=== PATIENT | female | born 1955 | race Caucasian/White ===

== ENCOUNTER → 2024-02-17 14:24 | Outpatient (REF) | payer MEDICARE, SELFPAY | LOC: WDC 14:24 | PROVIDERS: ATTENDING PHYSICIAN Nurse Practitioner Family; FAMILY PHYSICIAN Emergency Medicine | DX: Z12.31 Encounter for screening mammogram for malignant neoplasm of breast (principal) | CPT/HCPCS: 77063; 77067 ==

== ENCOUNTER 2024-06-24 14:46 | Inpatient (IN) | payer MEDICARE, SELFPAY ==
[2024-06-23] VITALS (7 sets, daily range): BP systolic 130–159; BP diastolic 59–102; BMI 23.9
[2024-06-23 14:42] LABS: % Basophils 0.4 % (0-2); % Immature Granulocytes 0.3 % (0-0.5); % Lymphocytes 24.5 % (20.5-51.1); % Monocytes 6.3 % (1.7-9.3); % Neutrophils 67.5 % (42.2-75.2); Absolute Eosinophils 0.1 10^3/uL (0-0.7); Absolute Lymphocytes 1.8 10^3/uL (1.2-3.4); Absolute Monocytes 0.5 10^3/uL (0.1-0.6); Absolute Neutrophils 4.9 10^3/uL (1.4-6.5); Hematocrit 34.4 % (37.0-47.0); Hemoglobin 11.8 g/dL (12.0-16.0); Mean Corp Hgb Conc. 34.3 g/dL (33.0-37.0); Mean Corpuscular Hgb 33.3 pg (27.0-31.0); Mean Corpuscular Volume 97.2 fL (81.0-99.0); Mean Platelet Volume 10.9 fL (7.4-10.4); Nucleated Red Blood Cells % 0 %; Platelet Count 196 10^3/uL (130-400); Red Blood Cell Count 3.54 10^6/uL (4.20-5.40); Red Cell Dist. Width 12.9 % (11.5-14.5); White Blood Cell Count 7.2 10^3/uL (4.8-10.8)
--- NOTE | 2024-06-23 14:51 | ED.GENMED ---
History of Present Illness
<Kalpana Banegas PA-C - Last Filed: 06/23/24 18:49>
General
Chief Complaint: Musculo-Skeletal Complaint
Source: patient
Exam Limitations: none
Time Seen by Provider: 06/23/24 14:19
Nursing documentation reviewed up to this point in time: agreed with
History of Present Illness
History of Present Illness:
pt is a 68 y/o F with h/o acoustic neuroma, hypothyroid
here after a fall 4 days ago where pt got up from sitting, she says she had sudden weakness L arm and L leg and couldn't move
she landed on her left shoulder and hip and knee and hurt her foot
she has had pain in the sholder, knee and foot since
her helped her up and she sat for a while before being misty to get up again
she says her wekaness resolved
she had no headache preceding, no siezure, no neck mo, no sudden dizziness
she does have h/o acoustic neuroma hasn't had MRI in a while
no dizziness
Past History
<Kalpana Banegas PA-C - Last Filed: 06/23/24 18:49>
Past History
ED Past Medical History: Hypothyroidism
ED Past Surgical History: None
Social History
Tobacco: Non-smoker
Personal:
Phy Exam
<HERMELINDO Malone Last Filed: 06/23/24 18:49>
Physical Exam
Physical Exam:
GENERAL: Alert , in no apparent distress
head: ncat
no dizziness
EYE: pupils equal and reactive
NECK: Supple, no bruits, nontender
ENT: b/l TM s clear, pharynx erythematous but no tonsillar hypertrophy or exudates
CARDIAC: Regular rate and rhythm, no edema
LUNGS: Clear breath sounds bilaterally, no acute respiratory distress, no wheezes/rales/rhonchi, occ cough
ABDOMEN: Soft, without focal tenderness, no r/g, no cvat, normal bowel sounds
NEUROLOGICAL: Alert and oriented, no focal neuro deficits, cn intacrt
normal strength, normal sensation
SKIN: Warm and dry, skin intact.
MUSCULOSKELETAL: L shoulder mild humeral head tenderness, full rom
left hip nontender
left knee flexion intact, mild discomfort, no effusion
left 5th MTP joint sweling and tenderness;
PSYCH: Normal and appropriate interaction.
Course
<Kalpana Banegas PA-C - Last Filed: 06/23/24 18:49>
Orders/Labs/Results
Orders:
Orders
06/23/24 13:53
Electrocardiogram (*1) Urgent
Reason for Study: Fatigue / Weakness
CT Head W/o Iv Contrast Urgent
Comment:
Reason For Exam: weakness
CR Foot - Left Min 3 Views Urgent
Comment:
Reason For Exam: injury
CR Shoulder, Trauma - Left Urgent
Reason For Exam: injury
06/23/24 13:54
EKG- Treatment ONCE
06/23/24 14:29
Complete Blood Count/With Diff Urgent
Comprehensive Metabolic Panel Urgent
Troponin I Urgent
06/23/24 14:45
CR Knee - Left 4 Or More View* Urgent
Comment:
Reason For Exam: left knee poain fall
06/23/24 Dinner
Regular
At Your Request: Full Participation
06/23/24 18:15
Admit/Transfer Patient As Directed
Co-Sign Provider:
Level of Care: Observation services
Assign to:: Telemetry
Physician / Group: marcus cardenas
Diagnosis: left side weakness conn cva/tia, fall L knee/shoulder contusion, l toe fx
Reason for Telemetry: Arrhythmia
Date to Stop Telemetry: 06/26/24
Time to Stop Telemetry: 11:00
Reason for Hospitalization: left side weakness conn cva/tia, fall L knee/shoulder contusion, l toe fx
Code Status As Directed
Resuscitation Status: Full Code
06/23/24 18:17
PRN Pain Medication Management As Directed
May give lesser potent ordered pain med per pt: Yes
preference::
Protocol:: Medication orders for pain may be administered in a
manner that supports deferring to patient preference
when the pt is:
- Requesting an ordered lesser potent pain medication.
Least to most potent pain medications are defined
as: acetaminophen < NSAID < tramadol < opioids
(morphine, oxycodone, hydromorphone).
- Requesting a lesser dose of the same medication IF
ORDERED.
- Requesting a less intrusive route of administration
if both routes are prescribed by the provider (PO <
IV).
06/23/24 18:59
Acetaminophen [Tylenol/Feverall] 650 mg RECTAL Q4HPRN PRN
Acetaminophen [Tylenol] 650 mg PO Q4HPRN PRN
06/23/24 18:59
Case Management Consult ONCE
Case Management Consult: Discharge Planning
Comment: stroke/tia
DIETARY CONSULT Routine
Reason for Consult: stroke/TIA
Comprehensive Metabolic Panel Routine
Glycohemoglobin (HgbA1c) Routine
MA [place] Routine
Comment:
Reason For Exam: stroke/TIA
OK for patient to be off Cardiac Monitoring for MRI: Yes
Recent pill cam endoscopy?: No
Pacemaker/Defibrillator?: No
MA Neck With Contrast Routine
Comment:
Reason For Exam: stroke/TIA
OK for patient to be off Cardiac Monitoring for MRI: Yes
Recent pill cam endoscopy?: No
Pacemaker/Defibrillator?: No
MR Brain Without Contrast Routine
Comment:
Reason For Exam: stroke/TIA
OK for patient to be off Cardiac Monitoring for MRI: Yes
Recent pill cam endoscopy?: No
Pacemaker/Defibrillator?: No
Activity As Directed
Activity Level: As Tolerated
NIH Stroke Scale As Directed
Directions: Per protocol
Comment: every shift and with any change in condition or mental status
Neurological Checks As Directed
Frequency: q4h
Additional Instructions:: q4h x 24h upon admission to the floor, then qshift & with any change in condition
and mental status
Patient Education As Directed
Type: Stroke education packet
Comment: provide to patient and family
Pneumatic Compression Sleeves As Directed
Type: Knee high
Vital Signs As Directed
Frequency: Per unit guidelines
Ot Eval And Treat Routine
Pt Eval And Treat Routine
Activity Level: As Tolerated
DX Deep Vein Thrombosis Video Routine
06/24/24 06:00
Cardiovascular Evaluation IN AM
Complete Blood Count/No Diff IN AM
TSH Reflex To Free T4 IN AM
06/24/24 08:00
Aspirin Chewable [Low Strength Aspirin] 81 mg PO DAILY
06/26/24 11:00
DC Protocol for Telemetry ONCE
Abnormal Lab Results
06/23/24
14:29
RBC 3.54 L 10^6/uL
(4.20-5.40)
Hgb 11.8 L g/dL
(12.0-16.0)
Hct 34.4 L %
(37.0-47.0)
MCH 33.3 H pg
(27.0-31.0)
MPV 10.9 H fL
(7.4-10.4)
BUN 18 H mg/dl
(7-17)
06/23/24 14:29
06/23/24 14:29
Vital Signs
Initial and Last Documented VS:
Initial Vital Signs
Temp Pulse Resp BP Pulse Ox
98.2 F 96 20 149/90 99
06/23/24 13:47 06/23/24 13:47 06/23/24 13:47 06/23/24 13:47 06/23/24 13:47
Last Documented Vital Signs
Temp Pulse Resp BP Pulse Ox
97.5 F 78 18 146/71 97
06/23/24 19:13 06/23/24 19:13 06/23/24 19:13 06/23/24 19:13 06/23/24 19:13
<Car Almeida, - Last Filed: 06/23/24 20:20>
Orders/Labs/Results
Orders:
Orders
06/23/24 13:53
Electrocardiogram (*1) Urgent
Reason for Study: Fatigue / Weakness
CT Head W/o Iv Contrast Urgent
Comment:
Reason For Exam: weakness
CR Foot - Left Min 3 Views Urgent
Comment:
Reason For Exam: injury
CR Shoulder, Trauma - Left Urgent
Reason For Exam: injury
06/23/24 13:54
EKG- Treatment ONCE
06/23/24 14:29
Complete Blood Count/With Diff Urgent
Comprehensive Metabolic Panel Urgent
Troponin I Urgent
06/23/24 14:45
CR Knee - Left 4 Or More View* Urgent
Comment:
Reason For Exam: left knee poain fall
06/23/24 Dinner
Regular
At Your Request: Full Participation
06/23/24 18:15
Admit/Transfer Patient As Directed
Co-Sign Provider:
Level of Care: Observation services
Assign to:: Telemetry
Physician / Group: marcus cardenas
Diagnosis: left side weakness conn cva/tia, fall L knee/shoulder contusion, l toe fx
Reason for Telemetry: Arrhythmia
Date to Stop Telemetry: 06/26/24
Time to Stop Telemetry: 11:00
Reason for Hospitalization: left side weakness conn cva/tia, fall L knee/shoulder contusion, l toe fx
Code Status As Directed
Resuscitation Status: Full Code
06/23/24 18:17
PRN Pain Medication Management As Directed
May give lesser potent ordered pain med per pt: Yes
preference::
Protocol:: Medication orders for pain may be administered in a
manner that supports deferring to patient preference
when the pt is:
- Requesting an ordered lesser potent pain medication.
Least to most potent pain medications are defined
as: acetaminophen < NSAID < tramadol < opioids
(morphine, oxycodone, hydromorphone).
- Requesting a lesser dose of the same medication IF
ORDERED.
- Requesting a less intrusive route of administration
if both routes are prescribed by the provider (PO <
IV).
06/23/24 18:59
Acetaminophen [Tylenol/Feverall] 650 mg RECTAL Q4HPRN PRN
Acetaminophen [Tylenol] 650 mg PO Q4HPRN PRN
06/23/24 18:59
Case Management Consult ONCE
Case Management Consult: Discharge Planning
Comment: stroke/tia
DIETARY CONSULT Routine
Reason for Consult: stroke/TIA
Comprehensive Metabolic Panel Routine
Glycohemoglobin (HgbA1c) Routine
MA [place] Routine
Comment:
Reason For Exam: stroke/TIA
OK for patient to be off Cardiac Monitoring for MRI: Yes
Recent pill cam endoscopy?: No
Pacemaker/Defibrillator?: No
MA Neck With Contrast Routine
Comment:
Reason For Exam: stroke/TIA
OK for patient to be off Cardiac Monitoring for MRI: Yes
Recent pill cam endoscopy?: No
Pacemaker/Defibrillator?: No
MR Brain Without Contrast Routine
Comment:
Reason For Exam: stroke/TIA
OK for patient to be off Cardiac Monitoring for MRI: Yes
Recent pill cam endoscopy?: No
Pacemaker/Defibrillator?: No
Activity As Directed
Activity Level: As Tolerated
NIH Stroke Scale As Directed
Directions: Per protocol
Comment: every shift and with any change in condition or mental status
Neurological Checks As Directed
Frequency: q4h
Additional Instructions:: q4h x 24h upon admission to the floor, then qshift & with any change in condition
and mental status
Patient Education As Directed
Type: Stroke education packet
Comment: provide to patient and family
Pneumatic Compression Sleeves As Directed
Type: Knee high
Vital Signs As Directed
Frequency: Per unit guidelines
Ot Eval And Treat Routine
Pt Eval And Treat Routine
Activity Level: As Tolerated
DX Deep Vein Thrombosis Video Routine
06/24/24 06:00
Cardiovascular Evaluation IN AM
Complete Blood Count/No Diff IN AM
TSH Reflex To Free T4 IN AM
06/24/24 08:00
Aspirin Chewable [Low Strength Aspirin] 81 mg PO DAILY
06/26/24 11:00
DC Protocol for Telemetry ONCE
Abnormal Lab Results
06/23/24
14:29
RBC 3.54 L 10^6/uL
(4.20-5.40)
Hgb 11.8 L g/dL
(12.0-16.0)
Hct 34.4 L %
(37.0-47.0)
MCH 33.3 H pg
(27.0-31.0)
MPV 10.9 H fL
(7.4-10.4)
BUN 18 H mg/dl
(7-17)
06/23/24 14:29
06/23/24 14:29
Vital Signs
Initial and Last Documented VS:
Initial Vital Signs
Temp Pulse Resp BP Pulse Ox
98.2 F 96 20 149/90 99
06/23/24 13:47 06/23/24 13:47 06/23/24 13:47 06/23/24 13:47 06/23/24 13:47
Last Documented Vital Signs
Temp Pulse Resp BP Pulse Ox
97.5 F 78 18 146/71 97
06/23/24 19:13 06/23/24 19:13 06/23/24 19:13 06/23/24 19:13 06/23/24 19:13
<Kalpana Banegas PA-C - Last Filed: 06/23/24 18:49>
MDM/Problems Addressed
Differential Diagnosis Includes:
tia, stroke, dissection
MDM/Problems Addressed:
68 y/o F
h/o hypothyroid
5 days ago stood up from sitting and fell right to the ground due to L arm an dleg weakness; couldn't move or feel her L side;
she recovered after a few hours
has foot pain on the L and a foot fracture
head ct neg
nih 0 now
needs mri/neuro consult for TIA
<Kalpana Banegas PA-C - Last Filed: 06/23/24 18:49>
*Critical Care Note
Total Time (30-74mins, 75-104mins- exclusive of procedures): Not Applicable
ED Attending Note
<Kalpana Banegas PA-C - Last Filed: 06/23/24 18:49>
-
Portions of this chart may have been created with voice recognition software.� Occasional wrong word or��sound alike� substitutions may have occurred due to the inherent limitations of voice recognition software.
<Car Almeida DO - Last Filed: 06/23/24 20:20>
ED Attending Note
Patient seen and examined by attending physician: Yes
I performed the substantive portion of visit, reviewed & personally made and approve the management plan that is documented in note by myself or TATYANA.: Yes
ED Attending Note:
Concerning left-sided weakness and sensory changes the other day for TIA. Given her age, history and severity of TIA, admit for further workup. Resting comfortably and neuroexam is normal my assessment no focal findings including normal
finger-nose, normal tnsa-pv-tihs, no pronator drift no motor weakness. Cranial nerves intact
Discharge Plan
Departure
Patient Disposition: Admit
Date of Disposition: 06/23/24
Time of Disposition: 16:06
Admit to: Telemetry
Presentation/result/management discussed w/ accepting MD/DO: Hospitalist
Patient with high blood pressure during this ER visit?: No
Condition: Fair
Covid-19: Not Applicable
Discharge Problem:
Brain TIA
Interventions
Interventions:
*Risk Screen - Suicide Last Done: 06/23/24 13:47
*General Assessment Last Done: 06/23/24 13:47
*Neglect/Abuse Screening Last Done: 06/23/24 13:47
ED- Fall Risk Assessment Last Done: 06/23/24 15:33
*ED COVID-19 Vaccine History Last Done: 06/23/24 14:40
*Nursing Disposition Last Done: 06/23/24 18:45
ED-Musculoskeletal Assessment Last Done: 06/23/24 14:40
Discharge Date and Time
Discharge Date/Time: 06/23/24 18:47
[2024-06-23 14:55] LABS: ALT (SGPT) 19 U/L (0-35); AST (SGOT) 29 U/L (14-36); Albumin 4.3 g/dl (3.5-5.0); Alkaline Phosphatase 70 U/L (38-126); Blood Urea Nitrogen 18 mg/dl (7-17); Calcium 9.6 mg/dl (8.4-10.2); Carbon Dioxide 23 mmol/L (22-30); Chloride 105 mmol/L (98-107); Glucose 95 mg/dl (70-99); Sodium 139 mmol/L (135-145); Total Bilirubin 0.6 mg/dl (0.2-1.3); Total Protein 6.7 g/dl (6.3-8.2); eGFR > 60.00
[2024-06-23 15:04] LABS: Troponin I < 0.012 ng/ml
--- NOTE | 2024-06-23 16:48 | HPS.HSE ---
Addendum entered and electronically signed by Christal Napier MD 06/23/24 18:36:
I saw and examined the patient.
The SAF[employer]Y DEPOSIT SUPERVISOR or PA's note was reviewed and I agree with the note.
Comment:
68 F with left sided weakness > 4 days ago that seemed to resolve now
Physical Exam
General: Comfortable and Conversant; No Pain or Fever
HEENT: NormoCephalic, Anicteric, Moist mucous membranes, Atraumatic, PERRLA, Gillis Conjunctivae, No Ptosis and Neck Nontender
Respiratory: Clear; No Wheezes, Rales or Rhonchi
Cardiac: S1/S2 and Regular Rhythm; No Murmur, Rub, Gallop or Peripheral Edema
GI: Soft, Non Tender and Normal Bowel Sounds
Genito-urinary: No CV tenderness
Musculoskeletal: No Clubbing, No Cyanosis, No Edema and Other (Left fifth distal toe tenderness, left fifth mid metatarsal tenderness no abrasion ecchymosis or edema but x-ray showing avulsion fractures, tenderness left anterior shoulder no effusion
full range of motion, tenderness left knee but with full range of motion)
Skin: Warm and Dry; No Rash or Jaundice
Neuro: AO x 3, No Motor Deficits, Nonfocal/grossly intact, Cranial Nerves Intact and No Sensory Deficits; No Slurred Speech, Facial Droop or Tremors
Psych: Calm
#Left-sided weakness concern for CVA/TIA versus acoustic neuroma symptoms ( gets chronic right sided hearing loss, clicking, occasional right blurred vision and some balance issues)
Symptoms 4 days ago
-Consult neurology
-MRI/MRI brain, neck
-Check lipid profile, HgbA1c
-Hold Aleve for 40 mg twice daily as needed
-Aspirin 81mg daily
-Check orthostatic vitals
-PT/OT/case management consult
CT head: No acute intracranial abnormality
#Mechanical fall with left foot, avulsion fracture fifth metatarsal phalangeal joint, lateral fifth middle phalanx
-Ice, Tylenol as needed
-Patient with current cam boot to left foot
-Follow-up outpatient podiatry
#Mechanical fall with right shoulder pain/contusion, left knee contusion
Ice, Tylenol
Right shoulder x-ray DJD glenoid portion of scapula
Left knee x-ray: Hardware intact no fracture or effusion
#Alcohol use
Drinks 2 to 3 glasses wine 3 times a week
-Last drink was 06/20/2024
No current concern for withdrawal
#Hx acoustic neuroma Dx 2019 Dr. Ellison- gets chronic right sided hearing loss, clicking, occasional right blurred vision and some balance issues
#Hypothyroidism
-Check TSH with free T4 reflex
-Continue levothyroxine 50 mcg p.o. daily
#Anxiety
She requested sleep medicine, d/w pt and , will try Klonopin
DVT prophylaxis
SCDs
Total time spent to see the patient, examine the patient on the floor, review data and lab results, and discuss the treatment plan with the patient, ED doctor and nursing staff around 75 minutes
Original Note:
Family Physician
-
Family Physician: Lori Gomes MD
Chief Complaint
-
Fall 4 days ago with left arm left leg weakness, current right shoulder pain, left foot pain
History of Present Illness
68-year-old female complains of a fall 4 days ago from sitting position when she went to stand up she fell onto her left side due to left leg weakness. She reports she was able to brace herself with her right arm only. She complains of left
shoulder pain, left knee pain, left foot pain. She had no prodrome of dizziness headache, blurred vision, chest pain, palpitations, short breath, cough, abdominal pain, nausea, vomit, diarrhea, urinary symptoms, fever, chills. She reports she was
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 She has no appreciated weakness or neurological deficits on my exam. She has history of acoustic neuroma diagnosed in 2020 with occasional chronic right sided
hearing loss, clicking, occasional right blurred vision and some balance issues. in the ER she was placed in a cam boot for a avulsion fracture of her Lateral aspect fifth metatarsophalangeal joint and fifth middle phalanx avulsion fracture
She has past medical history of acoustic neuroma, hypothyroidism, anxiety
Medical History
Past Medical History
Past Medical History: Reports Other
Additional Past Medical History:
acoustic neuroma Dx 2020 by ENT gets chronic right sided hearing loss, clicking, occasional right blurred vision and some balance issues
hypothyroidism
Anxiety
Past Surgical History: Reports Other
Additional Past Surgical History:
section
Knee replacement left
Social History
Tobacco: Non-smoker
Alcohol: Occasional (3 glasses of wine 3 times a week)
Personal:
Living: With Family
Employment: Employed (english as a second language instructor)
Family History
Family History: Other (Mother living, HTN, father age 74 [place] history CVA mid 70s, 1 sister history of mitral prolapse and hypertension other sister healthy 2 brothers healthy)
Allergies / Home Medications
Allergies reflects when Allergies were last updated in [facility].
Home Medications with original date entered in [facility]
Allergy/Medication List:
Allergies
Allergy/AdvReac Type Severity Reaction Status Date / Time
Penicillins Allergy Shortness Verified 06/23/24 13:47
of Breath
Home Medications
cholecalciferol (vitamin D3) 25 mcg (1,000 unit) tablet 1,000 units PO DAILY 03/17/13
multivitamin with folic acid 400 mcg tablet (Tab-A-Jonathan) 1 tab PO DAILY 03/17/13
levothyroxine 50 mcg tablet (Synthroid) 50 mcg PO DAILY 06/23/24
naproxen sodium 220 mg tablet (Aleve) 440 mg PO BIDPRN PRN mild pain 06/23/24
Review of Systems
-
History Source: Patient and Family ( at bedside)
A 12 point ROS was completed and negative except as noted: Yes
Constitutional: Denies Fever, Fatigue or Chills
EENT: Denies Sore Throat or Runny Nose
Respiratory: Denies Cough or Trouble Breathing
Cardiac: Denies Chest Pain, Diaphoresis, Palpitations or Syncope
Abdomen/GI: Denies Abdominal Pain, Nausea, Vomiting, Diarrhea, Constipated, Bloody Stools or Black Stools
: Denies Dysuria, Frequency, Flank Pain, Incontinence, Difficulty Voiding, Urgency or Bleeding
Musculoskeletal: Reports Joint Pain (Left fifth distal toe and mid fifth metatarsal); Denies Edema
Skin: Denies Itching or Rash
Neurological: Denies Dizzy, Headache or Weakness
Endocrine: Reports No Symptoms
Hematologic/Lymphatic: Reports No Symptoms
Psych: Reports Calm
Physical Exam
Vital Signs
Vital Signs
Temp Pulse Resp BP Pulse Ox
98.2 F 83 18 159/88 97
06/23/24 13:47 06/23/24 16:17 06/23/24 16:17 06/23/24 16:17 06/23/24 16:17
Physical Exam
General: Comfortable and Conversant; No Pain or Fever
HEENT: NormoCephalic, Anicteric, Moist mucous membranes, Atraumatic, PERRLA, Gillis Conjunctivae, No Ptosis and Neck Nontender
Respiratory: Clear; No Wheezes, Rales or Rhonchi
Cardiac: S1/S2 and Regular Rhythm; No Murmur, Rub, Gallop or Peripheral Edema
Breast: Deferred by me
GI: Soft, Non Tender and Normal Bowel Sounds
Rectal: Deferred by Provider
Genito-urinary: Deferred by me
Musculoskeletal: No Clubbing, No Cyanosis, No Edema and Other (Left fifth distal toe tenderness, left fifth mid metatarsal tenderness no abrasion ecchymosis or edema but x-ray showing avulsion fractures, tenderness left anterior shoulder no effusion
full range of motion, tenderness left knee but with full range of motion)
Skin: Warm and Dry; No Rash or Jaundice
Neuro: AO x 3, No Motor Deficits, Nonfocal/grossly intact, Cranial Nerves Intact and No Sensory Deficits; No Slurred Speech, Facial Droop or Tremors
Psych: Calm
Laboratory Results
-
06/23/24 14:29
06/23/24 14:29
Laboratory Results
Total Bilirubin 0.6 mg/dl (0.2-1.3) 06/23/24 14:29
AST 29 U/L (14-36) 06/23/24 14:
ALT 19 U/L (0-35) 06/23/24 14:
Alkaline Phosphatase 70 U/L (38-126) 06/23/24 14:
Troponin I < 0.012 ng/ml 06/23/24 14:29
Impression/Plan
-
Impression/plan:
Observation telemetry
#Left-sided weakness concern for CVA/TIA versus acoustic neuroma symptoms ( gets chronic right sided hearing loss, clicking, occasional right blurred vision and some balance issues)
Symptoms 4 days ago
-Consult neurology
-MRI/MRI brain, neck
-Check lipid profile, HgbA1c
-Hold Aleve for 40 mg twice daily as needed
-Aspirin 81mg daily
-Check orthostatic vitals
-PT/OT/case management consult
CT head: No acute intracranial abnormality
#Mechanical fall with left foot, avulsion fracture fifth metatarsal phalangeal joint, lateral fifth middle phalanx
-Ice, Tylenol as needed
-Patient with current cam boot to left foot
-Follow-up outpatient Ortho
#Mechanical fall with right shoulder pain/contusion, left knee contusion
Ice, Tylenol
Right shoulder x-ray DJD glenoid portion of scapula
Left knee x-ray: Hardware intact no fracture or effusion
#Alcohol use
Drinks 2 to 3 glasses wine 3 times a week
-Last drink was 06/20/2024
No current concern for withdrawal
#Hx acoustic neuroma Dx 2019 Dr. Ellison- gets chronic right sided hearing loss, clicking, occasional right blurred vision and some balance issues
#Hypothyroidism
-Check TSH with free T4 reflex
-Continue levothyroxine 50 mcg p.o. daily
#Anxiety
-No reported meds
DVT prophylaxis
SCDs
Full code
--- NOTE | 2024-06-23 18:53 | PTCARENOTE ---
Pt received from ED to [phone]. Pt oriented to room and call chen.
[2024-06-23] MEDS: KLONOPIN 0.5 MG PO (22:05)
[2024-06-24] VITALS (7 sets, daily range): BP systolic 108–139; BP diastolic 58–92; PULSE 76; O2SAT 96–97
[2024-06-24] MEDS: NSS (PRESERVATIVE FREE) 0.5 ML IV (07:48)
[2024-06-24] MEDS: ATIVAN 1 MG IV (07:48)
[2024-06-24] MEDS: LOW STRENGTH ASPIRIN 81 MG PO (07:48)
[2024-06-24 07:54] LABS: Hematocrit 35.4 % (37.0-47.0); Hemoglobin 12.1 g/dL (12.0-16.0); Mean Corp Hgb Conc. 34.2 g/dL (33.0-37.0); Mean Corpuscular Hgb 33.9 pg (27.0-31.0); Mean Corpuscular Volume 99.2 fL (81.0-99.0); Mean Platelet Volume 11.5 fL (7.4-10.4); Platelet Count 184 10^3/uL (130-400); Red Blood Cell Count 3.57 10^6/uL (4.20-5.40); Red Cell Dist. Width 12.7 % (11.5-14.5); White Blood Cell Count 5.1 10^3/uL (4.8-10.8)
[2024-06-24 07:57] LABS: HDL Cholesterol 82 mg/dl; LDL Cholesterol, Calculated 115 mg/dl; Total Cholesterol 208 mg/dl (50-199); Triglyceride 59 mg/dl (10-149); Very Low Density Lipoprotein 11 mg/dl (0-30)
[2024-06-24 08:21] LABS: TSH Reflex To Free T4 4.02 uIU/ml (0.47-4.68)
[2024-06-24 09:30] LABS: Glycohemoglobin (HgbA1c) 5.2 % (4.0-5.6)
--- NOTE | 2024-06-24 09:51 | CON.NEURO4 ---
Documented by User: Indu Foley NP 06/24/24 14:20
Consultation - Neurology 4
-
CONSULTING PHYSICIAN: Heber Darden MD
REFERRING PHYSICIAN: Hospitalists/MURPHY Singletary
DICTATED BY: MURPHY Moyer
DATE/TIME OF REQUEST: 06/23/24
DATE/TIME OF CONSULTATION: 06/24/24
Reason for Consultation: Left sided numbness/weakness
History of Present Illness:
This is a 68-year-old right-handed female who has presented to the hospital on 06/23/24 with report of left-sided weakness and numbness. Patient reports being away last weekend to visit friends. Five days ago on 06/19/24, she reports standing up from
drinking coffee on the porch and suddenly developing numbness in her left face, arm, and leg. She tried to walk and her LLE seemed to slide diagonally. She was unable to control her LLE and she fell to the ground, injuring her left foot. She was
unable to get up off the ground independently but her assisted her to stand and was able to get her to the couch to lie down. She reports lying down for several hours and notes that her symptoms gradually resolved. She was able to walk again
but her balance was slightly off. She notes feeling foggy/not quite as mentally sharp following this event. Her balance has also remained off for the next several days but she attributed this to her left foot pain and her acoustic neuroma. She
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 CT head was obtained on arrival in the ER and is negative for any acute abnormalities. NIHSS was 0. She was not a candidate for TNK/IAT due to being outside
of the time window and NIHSS 0. She reports having a mild headache this morning that has now resolved. She denies any dizziness, vision changes, speech/swallow difficulty, numbness, nausea, chest pain, palpitations, and shortness of breath. She
notes that her left foot feels slightly weak but she attributes this to pain. She denies any history of TIA, stroke, or events like this in the past. She was not taking any blood-thinning medications. She has a history of acoustic neuroma diagnosed
in 2020 after evaluation by ENT for chronic right-sided hearing loss, right ear clicking sound, occasional R eye blurry vision, and intermittent balance issues.
Past Medical History: Acoustic neuroma, hypothyroidism, anxiety
Surgical History: , L TKR
Family History: Father- CVA in his 70's, Guillain [place].
Social History: Former distant tobacco. Occasional alcohol. No illicit drug use.
Allergies: Penicillins.
Home Medications: See below.
Review of Symptoms:
Patient denies any fever, headache, chest pain, shortness of breath, GI or symptoms.
�Per the HPI.�All systems are reviewed negative except above.
Physical Exam:
The patient is afebrile, abdomen is nondistended, breathing is unlabored, skin is warm and dry, no edema.
NIH Stroke Scale:
I performed the NIH stroke scale on the patient on 06/24/24 at 1000. The patient scored 1 points on the NIH stroke scale assessment, which were assigned as follows: See below.
Neurologic Examination:
The patient is awake, alert and oriented x 3. She is able to follow commands and answer questions appropriately. There is no aphasia or dysarthria. On cranial nerve assessment, pupils are 3 mm bilateral, round and reactive to light and
accommodation. Visual massey are full. Extraocular movements are intact. Facial sensations are intact and bilaterally symmetrical, there is no facial asymmetry. Hearing is intact bilaterally to normal conversation volume. Tongue palate and uvula are
midline. Sternocleidomastoid strengths are full bilaterally. Motor strengths are 5/5 bilateral upper, 5/5 right lower, and 5-/5 left lower extremities on medical research Jena scale. There is very slight drift in the LLE. No involuntary movement
noted. Babinski is absent bilaterally. Sensations of touch, temperature and vibration are intact and bilaterally symmetrical. There was no extinction noted on double simultaneous stimulation. Coordination is intact by finger to nose bilaterally.
Lab Results: See below.
Neuro Imaging:
1. CT Head 06/23/24: No acute intracranial abnormality.
2. MRI Brain 06/24/24: Suspected small nonhemorrhagic acute/subacute right frontal lobe infarct.
3. MRA Head/Neck 06/24/24: No focal hemodynamically significant stenosis, aneurysm or occlusion.
Differentials for the patient's presentation include:
1. Acute right frontal lobe small ischemic stroke producing left-sided symptoms; unclear etiology, likely small vessel disease but low risk factors for stroke.
Patient has the following risk factors for their symptoms: HLD, age, family history
IV Tenecteplase/IAT candidacy: She was not a candidate for TNK/IAT due to being outside of the time window and NIHSS 0.
Recommendations:
-Continue DAPT with aspirin 81mg and Plavix 75mg daily for 21 days. After 21 days, discontinue Plavix and continue aspirin 81mg daily only, indefinitely.
-Goal normotension.
-TTE pending.
-Patient was due for acoustic neuroma surveillance imaging as an outpatient. Radiology is able to visual this based on imaging completed today and will addend the report to include measurements.
-LDL goal <70. LDL is 115. Recommend initiating atorvastatin 40mg daily. Patient refuses any statin therapy and ezetimibe. Discussed significance of high dose statin therapy in stroke prevention, patient still refuses.
-Goal normoglycemia, hbA1c is 5.2.
-NIHSS and neurological checks per unit guidelines.
-Provide patient with a stroke education packet.
-PT/OT evaluations.
-DVT prophylaxis.
-Patient should follow-up with Neurology as an outpatient in about 4 weeks, may see the [employer] [employer] [employer] or one of the physicians.
Discussed patient care with: Dr. Darden, the patient
Vital Signs and Labs
-
Vital Signs and Labs:
Vital Signs
Temp Pulse Resp BP Pulse Ox
97.7 F 77 18 139/64 99
06/24/24 11:27 06/24/24 11:27 06/24/24 11:27 06/24/24 11:27 06/24/24 11:27
Lab Results
06/24/24 06:31
06/23/24 18:59
Sodium Cancelled 06/23/24 18:59
Potassium Cancelled 06/23/24 18:59
BUN Cancelled 06/23/24 18:59
Glucose Cancelled 06/23/24 18:59
Calcium Cancelled 06/23/24 18:59
LDL Cholesterol, Calc 115 mg/dl 06/24/24 06:31
Medications
-
Active Medications
Generic Name Dose Route Start Last Admin
Trade Name Freq PRN Reason Stop Dose Admin
Acetaminophen 650 mg 06/23/24 18:59
Acetaminophen 650 Mg Rectal Suppository RECTAL 07/21/24 18:58
Q4HPRN PRN
FERRARO, mild pain, or temp >100.4F
Acetaminophen 650 mg 06/23/24 18:59
Acetaminophen 325 Mg Tablet PO 07/21/24 18:58
Q4HPRN PRN
FERRARO, mild pain, or temp >100.4F
Aspirin 81 mg 06/24/24 08:00 06/24/24 07:48
Aspirin 81 Mg Chewable Tablet PO 07/22/24 07:59 81 mg
DAILY JARON Administration
Clonazepam 0.5 mg 06/23/24 22:00 06/23/24 22:05
Clonazepam 0.5 Mg Tablet PO 07/21/24 21:59 0.5 mg
HS JARON Administration
Clopidogrel Bisulfate 75 mg 06/24/24 10:00 06/24/24 12:25
Clopidogrel 75 Mg Tablet PO 07/14/24 08:01 75 mg
DAILY JARON Administration
Lorazepam 1 mg 06/23/24 18:59 06/24/24 07:48
Lorazepam 2 Mg/Ml Vial IV 06/24/24 18:58 1 mg
ONCE PRN PRN Administration
MRI testing
Sodium Chloride 0 flush 06/23/24 20:00
Sodium Chloride 0.9% (Flush) Syringe IV 07/21/24 19:59
PER PROTOCOL JARON
Sodium Chloride 0.5 ml 06/23/24 19:51 06/24/24 07:48
Nss (Pf) 10 Ml Vial For Ativan 1 Mg Dose IV 06/24/24 19:50 0.5 ml
ONCE PRN PRN Administration
IV LORAZEPAM DILUTION
Home Medications
�Medication �Instructions �Recorded
cholecalciferol (vitamin D3) 25 1,000 units PO DAILY 03/17/13
mcg (1,000 unit) tablet
multivitamin with folic acid 400 1 tab PO DAILY 03/17/13
mcg tablet (Tab-A-Jonathan)
levothyroxine 50 mcg tablet 50 mcg PO DAILY 06/23/24
(Synthroid)
naproxen sodium 220 mg tablet 440 mg PO BIDPRN PRN mild pain 06/23/24
(Aleve)
NIH Stroke Score
Subsequent NIH Scale
Date of Subsequent NIH Scale: 06/24/24
Time of Subsequent NIH Scale: 10:00
NIH Stroke Score
Level of Consciousness: 0 - Alert
LOC Questions: 0-Answers both correctly
LOC Commands: 0-Performs both correctly
Best Horizontal Gaze: 0-Normal
Visual Massey: 0=Normal, no visual loss
Facial Palsy: 0=Normal, symmetrical
Motor - Right Arm: 0=No drift 10 seconds
Motor - Left Arm: 0=No drift 10 seconds
Motor - Right Le-No drift 5 seconds
Motor - Left Le-Drift < 5 seconds
Limb Ataxia: 0-Absent
Sensation: 0-Normal
Best Language: 0-No aphasia
Dysarthria: 0-Normal
Extinction and Inattention: 0-No abnormality
Total Score:: 1
Modified Eighty [place] (mRS) Score
Modified Mook Scale (mRS): No significant disability. Able to carry out usual activities.
Score: 1
Alteplase Contraindication
Inclusion and Exclusion criteria reviewed: Yes
Reasons for NON-Tx with Thrombolytics ABSOLUTE Exclusions: Greater than 4.5 hrs from onset of sxs
IAT Contraindications: NIHSS < 6

Documented by User: Heber Darden MD 06/24/24 14:49
Consultation - Neurology 4
-
CONSULTING PHYSICIAN: Heber Darden MD
REFERRING PHYSICIAN: Hospitalists/MURPHY Singletary
DICTATED BY: MURPHY Moyer
DATE/TIME OF REQUEST: 06/23/24
DATE/TIME OF CONSULTATION: 06/24/24
Reason for Consultation: Left sided numbness/weakness
History of Present Illness:
This is a 68-year-old right-handed female who has presented to the hospital on 06/23/24 with report of left-sided weakness and numbness. Patient reports being away last weekend to visit friends. Five days ago on 06/19/24, she reports standing up from
drinking coffee on the porch and suddenly developing numbness in her left face, arm, and leg. She tried to walk and her LLE seemed to slide diagonally. She was unable to control her LLE and she fell to the ground, injuring her left foot. She was
unable to get up off the ground independently but her assisted her to stand and was able to get her to the couch to lie down. She reports lying down for several hours and notes that her symptoms gradually resolved. She was able to walk again
but her balance was slightly off. She notes feeling foggy/not quite as mentally sharp following this event. Her balance has also remained off for the next several days but she attributed this to her left foot pain and her acoustic neuroma. She
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 CT head was obtained on arrival in the ER and is negative for any acute abnormalities. NIHSS was 0. She was not a candidate for TNK/IAT due to being outside
of the time window and NIHSS 0. She reports having a mild headache this morning that has now resolved. She denies any dizziness, vision changes, speech/swallow difficulty, numbness, nausea, chest pain, palpitations, and shortness of breath. She
notes that her left foot feels slightly weak but she attributes this to pain. She denies any history of TIA, stroke, or events like this in the past. She was not taking any blood-thinning medications. She has a history of acoustic neuroma diagnosed
in 2019 after evaluation by ENT for chronic right-sided hearing loss, right ear clicking sound, occasional R eye blurry vision, and intermittent balance issues.
Past Medical History: Acoustic neuroma, hypothyroidism, anxiety
Surgical History: , L TKR
Family History: Father- CVA in his 70's, Guillain [place].
Social History: Former distant tobacco. Occasional alcohol. No illicit drug use.
Allergies: Penicillins.
Home Medications: See below.
Review of Symptoms:
Patient denies any fever, headache, chest pain, shortness of breath, GI or symptoms.
�Per the HPI.�All systems are reviewed negative except above.
Physical Exam:
The patient is afebrile, abdomen is nondistended, breathing is unlabored, skin is warm and dry, no edema.
NIH Stroke Scale:
I performed the NIH stroke scale on the patient on 06/24/24 at 1000. The patient scored 1 points on the NIH stroke scale assessment, which were assigned as follows: See below.
Neurologic Examination:
The patient is awake, alert and oriented x 3. She is able to follow commands and answer questions appropriately. There is no aphasia or dysarthria. On cranial nerve assessment, pupils are 3 mm bilateral, round and reactive to light and
accommodation. Visual massey are full. Extraocular movements are intact. Facial sensations are intact and bilaterally symmetrical, there is no facial asymmetry. Hearing is intact bilaterally to normal conversation volume. Tongue palate and uvula are
midline. Sternocleidomastoid strengths are full bilaterally. Motor strengths are 5/5 bilateral upper, 5/5 right lower, and 5-/5 left lower extremities on medical research Jena scale. There is very slight drift in the LLE. No involuntary movement
noted. Babinski is absent bilaterally. Sensations of touch, temperature and vibration are intact and bilaterally symmetrical. There was no extinction noted on double simultaneous stimulation. Coordination is intact by finger to nose bilaterally.
Lab Results: See below.
Neuro Imaging:
1. CT Head 06/23/24: No acute intracranial abnormality.
2. MRI Brain 06/24/24: Suspected small nonhemorrhagic acute/subacute right frontal lobe infarct.
3. MRA Head/Neck 06/24/24: No focal hemodynamically significant stenosis, aneurysm or occlusion.
Differentials for the patient's presentation include:
1. Acute right frontal lobe small ischemic stroke producing left-sided symptoms; unclear etiology, likely small vessel disease but low risk factors for stroke.
Patient has the following risk factors for their symptoms: HLD, age, family history
IV Tenecteplase/IAT candidacy: She was not a candidate for TNK/IAT due to being outside of the time window and NIHSS 0.
Recommendations:
-Continue DAPT with aspirin 81mg and Plavix 75mg daily for 21 days. After 21 days, discontinue Plavix and continue aspirin 81mg daily only, indefinitely.
-Goal normotension.
-TTE pending.
-Patient was due for acoustic neuroma surveillance imaging as an outpatient. Radiology is able to visual this based on imaging completed today and will addend the report to include measurements.
-LDL goal <70. LDL is 115. Recommend initiating atorvastatin 40mg daily. Patient refuses any statin therapy and ezetimibe. Discussed significance of high dose statin therapy in stroke prevention, patient still refuses.
-Goal normoglycemia, hbA1c is 5.2.
-NIHSS and neurological checks per unit guidelines.
-Provide patient with a stroke education packet.
-PT/OT evaluations.
-DVT prophylaxis.
-Patient should follow-up with Neurology as an outpatient in about 4 weeks, may see the [employer] [employer] [employer] or one of the physicians.
Discussed patient care with: Dr. Darden, the patient
Addendum: Neurology Attending note:
Chief complaint: Left-sided numbness/weakness over the last 4 to 5 days
68-year-old right-handed female with history of anxiety disorder hypothyroidism and acoustic neuroma who was admitted to the hospital on 06/23/24 with complaints of left-sided weakness and numbness since June 19.
Patient reports being away last weekend to visit friends. Five days ago on 06/19/24, she reports standing up from drinking coffee on the porch and suddenly developing numbness in her left face, arm, and leg. She tried to walk and her LLE seemed to
slide diagonally. She was unable to stand and she fell, injuring her left foot. She was unable to get up off the ground independently but her assisted her to stand and was able to get her to the couch to lie down. She reports lying down for
several hours and notes that her symptoms gradually resolved. She was able to walk later but her balance was off. She notes feeling foggy/not quite as mentally sharp following this event. Her balance has also remained off for the next several days
but she attributed this to her left foot pain and her acoustic neuroma. 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 CT head was obtained on arrival in the ER and is negative for any acute
abnormalities. NIHSS was 0
And given the persistence of symptoms she came to the emergency room
On examination she is awake alert oriented to person place and time speech is fluent comprehension cranial nerve examination is nonfocal
Motor examination shows minimal weakness on the left side
Sensory examination is intact. Reflexes are present plantars are silent. Romberg's negative gait is intact
MRI brain shows a right inferior frontal cortical infarct. Small acoustic neuroma that is unchanged
Assessment: Acute right frontal lobe infarct
PLAN:
1. Dual antiplatelet therapy aspirin 81 mg and Plavix 75 mg for 3 weeks. With maintenance aspirin 81 mg week 4 onwards
2. Blood pressure management
3. Patient was advised on statin therapy but she refused
4. PT/OT
She can be discharged once medically stable with neurology follow-up as outpatient
NIH Stroke Score
NIH Stroke Score
Total Score:: 1
Modified Mook (mRS) Score
Score: 1
--- NOTE | 2024-06-24 10:29 | CM ---
Patient seen bedside, initial assessment completed. Patient resides with her in a three story home, three steps to enter, fourteen steps to bedroom. Patient denies DME in the home. Patient reports VN and outpatient PT ([facility]) after
knee replacement, denies SNF. Patient PCP Dr. Gomes, pharmacy [facility], confirms prescription coverage. CM reviewed [facility] form, refused to sign, placed in chart, inquiring if she will be switched to inpatient status. CM will continue to follow
for all discharge planning needs.
Plan; home no needs likely.
[2024-06-24] MEDS: PLAVIX 75 MG PO (12:25)
--- NOTE | 2024-06-24 12:35 | W.PN.HOSP.TC ---
Today's Communication/Plan
-
Tele
Plavix + aspirin
Consider Statin
PT/OT
Assessment / Plan
Assessment / Plan
Physical Exam
General: Comfortable and Conversant; No Pain or Fever
HEENT: NormoCephalic, Anicteric, Moist mucous membranes, Atraumatic, PERRLA, [place] Conjunctivae, No Ptosis and Neck Nontender
Respiratory: Clear; No Wheezes, Rales or Rhonchi
Cardiac: S1/S2 and Regular Rhythm; No Murmur, Rub, Gallop or Peripheral Edema
GI: Soft, Non Tender and Normal Bowel Sounds
Genito-urinary: No CV tenderness
Musculoskeletal: No Clubbing, No Cyanosis, No Edema and Other (Left fifth distal toe tenderness, left fifth mid metatarsal tenderness no abrasion ecchymosis or edema but x-ray showing avulsion fractures, tenderness left anterior shoulder no effusion
full range of motion, tenderness left knee but with full range of motion)
Skin: Warm and Dry; No Rash or Jaundice
Neuro: AO x 3, No Motor Deficits, Nonfocal/grossly intact, Cranial Nerves Intact and No Sensory Deficits; No Slurred Speech, Facial Droop or Tremors
Psych: Calm
# Acute right frontal lobe small ischemic stroke producing left-sided symptoms; unclear etiology, likely small vessel disease but low risk factors for stroke.
History of acoustic neuroma symptoms ( gets chronic right sided hearing loss, clicking, occasional right blurred vision and some balance issues)
Symptoms 4 days ago
Continue DAPT with aspirin 81mg and Plavix 75mg daily for 21 days. After 21 days, discontinue Plavix and continue aspirin 81mg daily only, indefinitely.
-Goal normotension.
LDL 115 . We discussed the use of statin, she is still considering it but will re-visit that again
NIHSS and neurological checks per unit guidelines.
-PT/OT/case management consult
#Mechanical fall with left foot, avulsion fracture fifth metatarsal phalangeal joint, lateral fifth middle phalanx
-Ice, Tylenol as needed
-Patient with current cam boot to left foot
-Follow-up outpatient podiatry
#Mechanical fall with right shoulder pain/contusion, left knee contusion
Ice, Tylenol
Right shoulder x-ray DJD glenoid portion of scapula
Left knee x-ray: Hardware intact no fracture or effusion
#Alcohol use
Drinks 2 to 3 glasses wine 3 times a week
-Last drink was 06/20/2024
No current concern for withdrawal
#Hx acoustic neuroma Dx 2019 Dr. Ellison- gets chronic right sided hearing loss, clicking, occasional right blurred vision and some balance issues
#Hypothyroidism
-Check TSH with free T4 reflex
-Continue levothyroxine 50 mcg p.o. daily
#Anxiety
She requested sleep medicine, d/w pt and , c/w Klonopin
DVT prophylaxis
SCDs
Total time spent to see the patient, examine the patient on the floor, review data and lab results, and discuss the treatment plan with the patient and nursing staff around 55 minutes
Anticipated Discharge: Within 24 hours
Subjective/Interval History
-
Date of Service: June 24, 2024
She feels better
No chest pain
No abdominal pain
Objective Data
-
Labs:
Laboratory Results
06/24/24
06:31
WBC 5.1
Hgb 12.1
Hct 35.4 L
Plt Count 184
Vital Signs:
Vital Signs
Temp Pulse Resp BP Pulse Ox
97.7 F 77 18 139/64 99
06/24/24 11:27 06/24/24 11:27 06/24/24 11:27 06/24/24 11:27 06/24/24 11:27
I&O
06/23/24 06/24/24 06/25/24
06:59 06:59 06:59
Intake Total 220 / 220
Balance 220 / 220
[2024-06-24] MEDS: KLONOPIN 0.5 MG PO (21:32)
[2024-06-25 03:28] VITALS: BP 117/52
[2024-06-25] MEDS: TYLENOL 650 MG PO (03:46)
[2024-06-25] MEDS: SYNTHROID 50 MCG PO (06:01)
[2024-06-25 07:00] VITALS: BP 113/69
[2024-06-25] MEDS: LOW STRENGTH ASPIRIN 81 MG PO (08:00)
[2024-06-25] MEDS: PLAVIX 75 MG PO (08:00)
--- NOTE | 2024-06-25 10:02 | W.PN.HOSP.TC ---
Today's Communication/Plan
-
discharge
Assessment / Plan
Assessment / Plan
Physical Exam
General: Comfortable and Conversant; No Pain or Fever
HEENT: NormoCephalic, Anicteric, Moist mucous membranes, Atraumatic, PERRLA, [place] Conjunctivae, No Ptosis and Neck Nontender
Respiratory: Clear; No Wheezes, Rales or Rhonchi
Cardiac: S1/S2 and Regular Rhythm; No Murmur, Rub, Gallop or Peripheral Edema
GI: Soft, Non Tender and Normal Bowel Sounds
Genito-urinary: No CV tenderness
Musculoskeletal: No Clubbing, No Cyanosis, No Edema and Other (Left fifth distal toe tenderness, left fifth mid metatarsal tenderness no abrasion ecchymosis or edema but x-ray showing avulsion fractures, tenderness left anterior shoulder no effusion
full range of motion, tenderness left knee but with full range of motion)
Skin: Warm and Dry; No Rash or Jaundice
Neuro: AO x 3,
Psych: Calm
# Acute right frontal lobe small ischemic stroke producing left-sided symptoms; unclear etiology, likely small vessel disease but low risk factors for stroke.
History of acoustic neuroma symptoms ( gets chronic right sided hearing loss, clicking, occasional right blurred vision and some balance issues)
Symptoms 4 days ago
Continue DAPT with aspirin 81mg and Plavix 75mg daily for 21 days. After 21 days, discontinue Plavix and continue aspirin 81mg daily only, indefinitely.
-Goal normotension.
LDL 115 . We discussed the use of statin at length, pt verbalized understanding risks and benefits of statin, she will try it and f/w her PCP, given script for follow up blood work ( CPK&LFT&BMP&CBC)
NIHSS and neurological checks per unit guidelines.
-PT/OT/case management consult
#Mechanical fall with left foot, avulsion fracture fifth metatarsal phalangeal joint, lateral fifth middle phalanx
-Ice, Tylenol as needed
-Patient with current cam boot to left foot
-Patient is concerned about mobility and instructions, will ask podiatry to help
#Mechanical fall with right shoulder pain/contusion, left knee contusion
Ice, Tylenol
Right shoulder x-ray DJD glenoid portion of scapula
Left knee x-ray: Hardware intact no fracture or effusion
#Alcohol use
Drinks 2 to 3 glasses wine 3 times a week
-Last drink was 06/20/2024
No current concern for withdrawal
#Hx acoustic neuroma Dx 2019 Dr. Ellison- gets chronic right sided hearing loss, clicking, occasional right blurred vision and some balance issues
#Hypothyroidism
-Continue levothyroxine 50 mcg p.o. daily
#Anxiety
She requested sleep medicine, d/w pt and , c/w Klonopin
DVT prophylaxis
SCDs
Total discharge time spent to see the patient, examine the patient on the floor, review data and lab results, and discuss the discharge plan with the patient, podiatry and nursing staff around 67 minutes
Anticipated Discharge: Today
Subjective/Interval History
-
Date of Service: June 25, 2024
No new symptoms, feels the same
No chest pain
She wants to go home
Objective Data
-
Vital Signs:
Vital Signs
Temp Pulse Resp BP Pulse Ox
97.4 F 62 18 113/69 97
06/25/24 07:00 06/25/24 07:00 06/25/24 07:00 06/25/24 07:00 06/25/24 07:00
I&O
06/24/24 06/25/24 06/26/24
06:59 06:59 06:59
Intake Total 220 / 220 1120 / 1120
Balance 220 / 220 1120 / 1120
[2024-06-25 11:00] VITALS: BP 98/66
--- NOTE | 2024-06-25 11:03 | CM ---
Patient seen bedside, discussed OT recommendations of outpatient therapy, patient agreeable and would like a script upon discharge. IMM reviewed, signed, placed in chart. CM will continue to follow for all discharge planning needs.
Plan; home with script for outpatient PT/OT.
--- NOTE | 2024-06-25 12:23 | W.DCSUMMARY ---
Discharge Summary
Discharge Data
Date of Admission: 06/24/24
Date of Discharge: 06/25/24
-
Pending Results: No
Hospital Course
68 years old female admitted with history of left-sided weakness and numbness that developed a few days before admission. Her symptoms gradually resolved although she continued to feel fatigued more than usual. 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
including teaching Pilates. It was noted that during the episode of left-sided weakness, she had a fall and injured her left foot. X-ray of the foot showed acute avulsion fractures/ arthritis of the lateral aspects of the fifth
metatarsophalangeal joint, and lateral to the fifth middle phalanx. In the emergency room, CAT scan of the head did not show acute abnormality. MRI of the brain showed small acute/subacute right frontal lobe infarct, stable finding of right
vestibular schwannoma. Patient was evaluated by neurologist, recommended to start dual antiplatelet therapy with aspirin and Plavix then continue aspirin. Patient was not taking aspirin at home. Patient was hesitant to start statin, LDL was 115.
After long discussion and reviewing potential benefits and side effects of statin, patient agreed to try low-dose statin and follow-up with her primary care doctor. She was given a prescription to do a follow-up blood work to monitor potential side
effects of statin therapy. Patient remained normotensive. She remained hemodynamically stable. Patient was evaluated by physical therapy recommended to continue occupational therapy. Patient was evaluated by podiatry for left foot injury, was
felt be calcific per-arthritis and was advised to use rigid soled shoes with full back to splint the joint. Patient was discharged in a stable condition.
Discharge Plan
-
Patient Disposition: Home (Routine Discharge)
Discharge Diagnosis/Procedures: Acute right frontal lobe stroke : continue dual antiplatelet therapy aspirin 81 mg and Plavix 75 mg for 3 weeks then maintenance aspirin 81 mg onwards.
You were started on low-dose Lipitor, statin. Potential side effects include fatigue, muscle pain/myositis, elevated liver enzyme. Do blood work in a month to monitor. Follow-up with your primary care doctor.
Contusion left foot/calcific marychuy-arthritis : rigid soled shoes with full back to splint the joint
Diet: Low Fat
Driving Restrictions: Not until seen by your Dr
Referrals:
[facility] [Provider Group] - 06/28/24 10:30 am (Appointment for monitoring coordinator placement)
Lori Gomes MD [Family Provider] - in one to two weeks
Giuliano Painting MD [Active] - in one month
Morelia De Los Santos PA-C [Specified Professional Personl] - 07/15/24 12:40 pm (You have a cardiology follow-up appointment at the [place] office with Dr. Torres's physician assistant front end manager, Morelia. Please call with questions. Heart monitor results to be
reviewed at this appointment)
Prescriptions:
New
atorvastatin 10 mg Tablet
10 mg PO QPM Qty: 30 0RF
aspirin 81 mg Tablet,Chewable
81 mg PO DAILY Qty: 30 0RF
clopidogrel 75 mg Tablet
75 mg PO DAILY Qty: 21 0RF
Continued
cholecalciferol (vitamin D3) 1,000 UNITS tablet
1,000 units PO DAILY
multivitamin with folic acid [Tab-A-Jonathan] 1 TABLET tablet
1 tab PO DAILY
levothyroxine [Synthroid] 50 mcg Tablet
50 mcg PO DAILY
Discontinued
naproxen sodium [Aleve] 220 mg Tablet
440 mg PO BIDPRN PRN (Reason: mild pain)
Discharge Orders:
Discharge Patient (As Directed); Ordered 06/25/24
Ordered By: Christal Napier
Discharge Date and Time
Discharge Date/Time: 06/25/24 14:42
Print Language: ARGENTINE
--- NOTE | 2024-06-25 12:47 | CON.MD ---
Consultation - Medical
-
Consulted for 68 year old female with Left sided weakness. Found to be acute right frontal lobe ischemic stroke. Also suffered mechanical fall affecting left foot, left knee and right shoulder. Knee and shoulder injury found to be contusions.
Left foot xray read as possible avulsion fracture vs calcific periarthritis. On exam, minimal edema with mild bruising at the lateral foot. Minimal pain with palpation and range of motion of the PIPJ and MTP joints.
Impression/Plan
-Acute right frontal lobe strike
-Contusion left knee and right shoulder secondary to fall
-Contusion left foot
Radiographic findings more consistent with calcific periarthritis than avulsion fracture
Discussed wearing current boot to get home, then changing to rigid soled shoes with full back to splint the joint.
This will stabilize the area without compromising balance post stroke
Will follow up in my office in 2-3 weeks
== END 2024-06-25 14:42 | disposition home or self-care (01) | DRG 65 ==
LOC: 4 WEST ACU 14:46
PROVIDERS: Clinical Nurse Specialist Family Health; Emergency Medicine; ADMITTING PHYSICIAN Internal Medicine; CONSULT PHYSICIAN Podiatrist Foot & Ankle Surgery; CONSULT PHYSICIAN Psychiatry & Neurology Neurology; EMERGENCY PHYSICIAN Emergency Medicine; FAMILY PHYSICIAN Emergency Medicine
DX: I63.89 Other cerebral infarction (principal); G81.94 Hemiplegia, unspecified affecting left nondominant side; E03.9 Hypothyroidism, unspecified; S40.011A Contusion of right shoulder, initial encounter; S80.02XA Contusion of left knee, initial encounter; S90.32XA Contusion of left foot, initial encounter; F41.9 Anxiety disorder, unspecified; D33.3 Benign neoplasm of cranial nerves; H91.91 Unspecified hearing loss, right ear; M19.072 Primary osteoarthritis, left ankle and foot; R29.701 NIHSS score 1; W19.XXXA Unspecified fall, initial encounter; Z96.652 Presence of left artificial knee joint; Z87.891 Personal history of nicotine dependence; Z82.3 Family history of stroke; Z79.890 Hormone replacement therapy
CPT/HCPCS: 70450; 70544; 70548; 70551; 73030; 73564; 73630; 80053; 80061; 83036; 84443; 84484; 85025; 85027; 93005; 93306; 97163; 97167; 97530; 99285; A9585

== ENCOUNTER 2024-08-04 10:51 | Day surgery (SDC) | payer MEDICARE, SELFPAY ==
[2024-08-04 13:06] VITALS: BMI 25.3
== END 2024-08-04 14:09 | disposition home or self-care (01) ==
LOC: CATH 10:51
PROVIDERS: ATTENDING PHYSICIAN Internal Medicine Cardiovascular Disease; FAMILY PHYSICIAN Emergency Medicine; OTHER PHYSICIAN Internal Medicine Cardiovascular Disease
DX: I48.0 Paroxysmal atrial fibrillation (principal); Z09 Encounter for follow-up examination after completed treatment for conditions other than malignant neoplasm; I69.354 Hemiplegia and hemiparesis following cerebral infarction affecting left non-dominant side; Z79.82 Long term (current) use of aspirin; Z79.890 Hormone replacement therapy; Z79.899 Other long term (current) drug therapy
CPT/HCPCS: 33285; C1764

== ENCOUNTER → 2024-09-21 13:53 | Outpatient (REF) | payer MEDICARE, SELFPAY | LOC: RCS 13:53 | PROVIDERS: ATTENDING PHYSICIAN Physician Assistant; FAMILY PHYSICIAN Emergency Medicine | DX: I49.3 Ventricular premature depolarization (principal); I51.7 Cardiomegaly | CPT/HCPCS: 93017; 93350 ==

== ENCOUNTER → 2024-11-03 14:16 | Outpatient (REF) | payer MEDICARE, SELFPAY | LOC: PAVMRI 14:16 | PROVIDERS: ATTENDING PHYSICIAN Otolaryngology; FAMILY PHYSICIAN Emergency Medicine | DX: D33.3 Benign neoplasm of cranial nerves (principal) | CPT/HCPCS: 70553; A9575 ==